=== PATIENT | female | born 1985 | race African-American/Black ===

== ENCOUNTER 2017-01-21 16:32 | Emergency (ER) | payer OTHER ==
[~2017-01-21 16:32] MED LIST: IBUP600 PO
[2017-01-21 17:02] VITALS: BP 112/70; PULSE 92
--- NOTE | 2017-01-21 17:08 | PD ---
HPI Chief Complaint decreased movement Date Seen: Jan 21, 2017 Time Seen: 16:55 (Edilberto Yancey MD R2) Travel History International Travel<30 Days: No Contact w/Intl Traveler<30Days: No Known Affected Area: No (Edilberto Yancey MD) History of Present Illness HPI 31 year old at 38 weeks gestation with EDC of January 31 presents with decreased movements. Onset was this morning. She has noticed about 5 movements per hour (without formal kick counts) while she normally experiences much more. She has no loss of fluid or vaginal bleeding. She has occasional cramping that is not new. She is a patient of [facility]vana Chávez and is up to date on care. complicated by mild gestational diabetes that is diet controlled, nausea throughout . She has no fever, chills, headache, chest pain, shortness of breath, dysuria, increased urinary frequency. (Edilberto Yancey MD R2) History Past Medical History Narrative Medical None (Edilberto Yancey MD) Obstetric History Obstetric History [facility] for OB care GBS negative 1st) 36 weeks vaginal delivery with episiotomy 2nd) induced vaginal delivery at 36 weeks for rupture of membranes, episiotomy with vacuum assistance Current: mild gestational diabetes, diet controlled (Edilberto Yancey MD R2) Past Surgical History Narrative Surgical None (Edilberto Yancey MD) Family History Narrative Family History None (Edilberto Yancey MD) Social History Narrative Social History None (Edilberto Yancey MD R2) Allergies-Medications (Allergen,Severity, Reaction): Coded Allergies: No Known Allergies (Verified , 01/20/15) Home Meds Active Scripts Ibuprofen (Motrin 600 Mg Tab)600 Mg [id number] Mg PO Q6H #30 TAB Ref 1 Prov:Maricarmen Rouse MD 01/22/15 Review of Systems Except as stated in HPI: all other systems reviewed are Neg (Edilberto Yancey MD R2) Physical Exam Narrative GENERAL: Well-nourished, well-developed patient. SKIN: Warm and dry. HEAD: Normocephalic and atraumatic. EYES: No scleral icterus. No injection or drainage. ENT: No nasal drainage noted. Mucous membranes pink. Airway patent. NECK: Supple, trachea midline. No JVD. CARDIOVASCULAR: Regular rate and rhythm without murmurs, gallops, or rubs. RESPIRATORY: Breath sounds equal bilaterally. No accessory muscle use. ABDOMEN/GI: Abdomen soft, non-tender, bowel sounds present, no rebound, no guarding Fundal Height: 38 GENITOURINARY: Uterine Contractions: irregular FHT's: Category: 1 Baseline: 150's Reactive: yes Variability: moderate Decels: none EXTREMITIES: No cyanosis or edema. BACK: Nontender without obvious deformity. No CVA tenderness. NEUROLOGICAL: Awake and alert. (Edilberto Yancey MD R2) Data Data Vital Signs Reviewed: Yes Orders Vital Signs (Adult) .ON ADMISSION (01/21/17 16:51) ^ Labor Status (01/21/17 16:51) ^ Non Stress Test (01/21/17 16:51) Us Ob Bpp Wo Nst (01/21/17 16:51) (Edilberto Yancey MD R2) MDM Medical Record Reviewed: Yes Interpretation(s) 31 year old presents with decreased movements. - External monitoring with non-stress test. - Oral hydration. - BPP - Reassurance, instructions on kick count at home. - Close follow up with OB. (Edilberto Yancey MD R2) Diagnosis Diagnosis: Primary Impression: Decreased movement Additional Impression: 38 weeks gestation of Attestation Patient is a 38-39 weeks gestation with decreased movement. Ultrasound was performed that notes a normal MEKHI of 19.5 and a weight of 3795 g. Biophysical profile is 8 out of 8. monitoring is a category 1. Patient will be discharged with follow-up to her OB provider as scheduled (Vera Ramirez MD) Edilberto Yancey MD R2 Jan 21, 2017 17:08 Vera Ramirez MD Jan 21, 2017 18:36
[2017-01-21 17:09] VITALS: RESP 20; TEMP 98.8
== END 2017-01-21 18:46 | disposition home or self-care (01) ==
LOC: HOBED 16:32
DX: O36.8130 Decreased fetal movements, third trimester, not applicable or unspecified (principal); O24.410 Gestational diabetes mellitus in pregnancy, diet controlled; Z3A.38 38 weeks gestation of pregnancy
CPT/HCPCS: 76816; 76819

== ENCOUNTER 2017-01-22 17:18 | Inpatient (IN) | payer OTHER ==
[2017-01-22] VITALS (8 sets, daily range): BP systolic 114–124; BP diastolic 71–84; PULSE 92–104; RESP 17–18; TEMP 97.5–97.7
[~2017-01-22 17:18] MED LIST changes: +DIPHTH/TETANUS/ACEL PERTUSSIS (BOOSTER) 0.5 ML VIAL/PFS IM ONE; +MEASLES, MUMPS, RUBELLA VACCINE 0.5 ML VIAL SQ ONE
[2017-01-22] MEDS ORDERED: LACTATED RINGER'S 1000 ML INJ 1,000 ML IV PRN (17:37)
[2017-01-22] MEDS ORDERED: LACTATED RINGER'S 1000 ML INJ 1,000 ML IV SCH (17:37)
[2017-01-22] MEDS ORDERED: OXYTOCIN 30 UNITS-500ML PREMIX 500 ML ONE (17:43)
[2017-01-22] MEDS ORDERED: LIDOCAINE HCL 1% 50 ML VIAL I-DERMAL PRN (17:45)
[2017-01-22] MEDS ORDERED: MINERAL OIL 10 ML VIAL TOPICAL PRN (17:45)
[2017-01-22] MEDS ORDERED: SODIUM CHLORID 0.9% 500 ML INJ 500 ML IV PRN (17:45)
[2017-01-22] MEDS ORDERED: CITRIC ACID-SODIUM CITRATE LIQ 30 ML UDC PO SCH (17:45)
[2017-01-22] MEDS ORDERED: LIDOCAINE HCL 1% 50 ML VIAL INFIL PRN (17:45)
[2017-01-22] MEDS ORDERED: OXYTOCIN 30 UNITS-500ML PREMIX 500 ML IV ONE (17:45)
--- NOTE | 2017-01-22 17:45 | HHI.HP ---
History & Physical H&P OB ED Note (Detail) Patient Name: Yasmin Goodman Unit Number: [id number] Date of : 1985 Patient Status: Registered Emergency Room Attending Doctor: Jaxson Aldrich MD HPI HPI Chief Complaint Contractions Date Seen: Jan 22, 2017 Time Seen: 17:40 Travel History International Travel<30 Days: No Contact w/Intl Traveler<30Days: No Known Affected Area: No History of Present Illness HPI 31-year-old 3 para 2 at 40 weeks gestation who reports contractions and ruptured membranes. She has had care with [facility] Ch[facility]vez which has been uncomplicated. Upon arrival in the triage unit she was 6 cm dilated 100% effaced and -1 station. Para: 2 : 3 Miscarriage: 0 : 0 History (Limited) History Past Medical History Medical History: Denies Significant Hx Obstetric History Obstetric History 2 prior vaginal deliveries without complication She reports no complications with this . Past Surgical History Surgical History: No Previous Surgery Family History Family History: Negative Social History Alcohol Use: No Tobacco Use: No Substance Abuse: No Allergies-Medications Allergies-Medications (Allergen,Severity, Reaction): Coded Allergies: No Known Allergies (Verified , 01/20/15) Home Meds Active Scripts Ibuprofen (Motrin 600 Mg Tab)600 Mg [id number] Mg PO Q6H #30 TAB Ref 1 Prov:Maricarmen Rouse MD 01/22/15 ROS Review of Systems Except as stated in HPI: all other systems reviewed are Neg Physical Exam Physical Exam Narrative GENERAL: Well-nourished, well-developed patient. SKIN: Warm and dry. HEAD: Normocephalic and atraumatic. EYES: No scleral icterus. No injection or drainage. ENT: No nasal drainage noted. Mucous membranes pink. Airway patent. NECK: Supple, trachea midline. No JVD. CARDIOVASCULAR: Regular rate and rhythm without murmurs, gallops, or rubs. RESPIRATORY: Breath sounds equal bilaterally. No accessory muscle use. ABDOMEN/GI: Abdomen soft, non-tender, bowel sounds present, no rebound, no guarding Gravid to [-] weeks size Fundal Height: [-] GENITOURINARY: External Genitalia: intact and normal in appearance BUS glands: [Negative-] Cervix: [-] Dilatation: [6-] Effacement: [-100] Station: [-1-] Presentation: [-Vertex] Membranes: ruptured] Uterine Contractions: [Every 3-] FHT's: Category: [-1] Baseline: [-] Reactive: [-] Variability: [-] Decels: [-] EXTREMITIES: No cyanosis or edema. BACK: Nontender without obvious deformity. No CVA tenderness. NEUROLOGICAL: Awake and alert. Motor and sensory grossly within normal limits. Five out of 5 muscle strength in all muscle groups. Normal speech. Data Data Data Vital Signs Reviewed: Yes Orders Ob (2e) Additional Admit Info (01/22/17 17:34) Admit To Inpatient (01/22/17 ) Vital Signs (Adult) .Per protocol (01/22/17 17:37) ^ Heart (01/22/17 17:37) ^ Amnioinfusion (01/22/17 17:37) Urinary Catheter Management .ONCE (01/22/17 17:37) Lactated Ringer's 1000 Ml Inj (Lr 1000 M (01/22/17 17:37) Lactated Ringer's 1000 Ml Inj (Lr 1000 M (01/22/17 17:37) Sodium Chlorid 0.9% 500 Ml Inj (Ns 500 M (01/22/17 17:45) Sodium Chlor 0.9% 1000 Ml Inj (Ns 1000 M (01/22/17 17:57) Lidocaine 1% Inj (50 Ml) (Xylocaine 1% I (01/22/17 17:45) Citric Acid-Sodium Citrate Liq (Bicitra (01/22/17 17:45) Fentanyl Inj (Fentanyl Inj) (01/22/17 17:45) Fentanyl Inj (Fentanyl Inj) (01/22/17 17:45) Complete Blood Count With Diff (01/22/17 17:37) Hold Clot (01/22/17 17:37) Abo/Rh Blood Type (01/22/17 17:37) Urinalysis - C+S If Indicated (01/22/17 17:37) Resp Oxygen Non Rebreathe Mask (01/22/17 ) ^ Epidural / Intrathecal Infus (01/22/17 17:37) Oxytocin 30 Units-500ml Premix (Pitocin (01/22/17 17:45) Lidocaine 1% Inj (50 Ml) (Xylocaine 1% I (01/22/17 17:45) Light Mineral Oil (Muri-Lube Oil) (01/22/17 17:45) Inpatient Certification (01/22/17 ) Specimen To Be Collected PRN (01/22/17 17:37) MDM MDM Medical Record Reviewed: Yes Narrative Course / MDM Assessment: Multipara at 40 weeks gestation in active labor with ruptured membranes. Plan: Admit for labor management. Jaxson Aldrich MD Jan 22, 2017 17:44 Jaxson Aldrich MD Jan 22, 2017 17:45
[2017-01-22] MEDS ORDERED: SODIUM CHLOR 0.9% 1000 ML INJ 1,000 ML IV PRN (17:57)
[2017-01-22 18:32] LABS: AUTOMATED NEUTROPHIL # 4.8 TH/MM3 (1.8-7.7); BASOPHIL # 0.1 TH/MM3 (0-0.2); BASOPHIL % 0.7 % (0.0-2.0); EOSINOPHIL % 0.4 % (0.0-4.0); HEMATOCRIT 32.7 % (35.0-46.0); HEMO FLAGS DIFF FINAL; LYMPH % 26.2 % (9.0-44.0); LYMPHOCYTE # 2.1 TH/MM3 (1.0-4.8); MEAN CELL VOLUME 84.2 FL (80.0-100.0); MEAN CORPUSCULAR HEMOGLOBIN 26.8 PG (27.0-34.0); MEAN CORPUSCULAR HGB CONC 31.8 % (32.0-36.0); MONO % 13.6 % (0.0-8.0); NEUT % 59.1 % (16.0-70.0); PLATELET COUNT 226 TH/MM3 (150-450); RED BLOOD COUNT 3.89 MIL/MM3 (4.00-5.30); RED CELL DISTRIBUTION WIDTH 16.6 % (11.6-17.2); WHITE BLOOD COUNT 8.1 TH/MM3 (4.0-11.0)
[2017-01-22 18:43] LABS: BACTERIA, URINE RARE /hpf; BLOOD, URINE NEG (NEG); COMMENT (UR) CULT NOT INDICATED; CULTURE IF INDICATED CULT NOT INDICATED; GLUCOSE,URINE NEG (NEG); KETONE, URINE NEG (NEG); NITRITE,URINE NEG (NEG); SQUAMOUS EPITHELIAL CELL URINE 5 /hpf (0-5); URINE COLOR LIGHT-YELLOW (YELLW/STRAW)
[2017-01-22 18:56] LABS: BLOOD GAS BASE EXCESS -2.5 mmol/L (-2-2); BLOOD GAS O2 HGB SATURATION 27 % (90-100); CORD BLOOD GAS HCO3 25 mmol/L (21-29); CORD BLOOD GAS PCO2 66 mmHG (34-78); CORD BLOOD GAS PO2 20 mmHG (3.0-40.0); DRAW SITE CORD BLOOD; STAT YES
--- NOTE | 2017-01-22 18:58 | PD.OB.DELI ---
Anesthesia: None Episiotomy: None Vaginal Delivery: Normal Presentation: Occiput anterior Nuchal Cord: None Delayed cord clamping (45 sec): No Shoulder Dystocia: Suprapubic pressure given, Karoline maneuver done, Wood's screw maneuver done : Male One Minute : 4 Five Minute : 8 Weight: 4560, 10lb 1oz Placenta: Spontaneous delivery, Intact, 3 vessel cord Laceration: Vaginal laceration, 2 deg Repair: Vicryl running (shoulder dystocia: The mother pushed effectively to deliver the vertex but the chin immediately retracted against the perineum. Karoline maneuver was immediately employed followed by suprapubic pressure. The posterior aspect of the posterior shoulder was then rotated into an oblique position which was successful in dislodging the anterior shoulder. This then allowed the completion of the delivery. The delay from delivery of the head to the delivery of the was 65 seconds.) Jaxson Aldrich MD Jan 22, 2017 18:58
[2017-01-22] MEDS ORDERED: DOCUSATE SODIUM 50 MG/SENNA 8.6 MG TAB PO PRN (19:15)
[2017-01-22] MEDS ORDERED: ZOLPIDEM TARTRATE 5 MG TAB PO PRN (19:15)
[2017-01-22] MEDS ORDERED: oxyCODONE/ACETAMINOPHEN 5 MG/325 MG TAB PO PRN (19:15)
[2017-01-22] MEDS ORDERED: ACETAMINOPHEN 325 MG TAB PO PRN (19:15)
[2017-01-22] MEDS ORDERED: ONDANSETRON ODT 4 MG TAB PO PRN (19:15)
[2017-01-22] MEDS ORDERED: WITCH HAZEL 50%/GLYCERIN 12.5% 40 PAD JAR TOPICAL PRN (19:15)
[2017-01-22] MEDS ORDERED: SODIUM CHLORIDE 0.9% FLUSH 5 ML FLUSH IV PRN (19:15)
[2017-01-22] MEDS ORDERED: ALUMINUM/MAGNESIUM/SIMETH 30 ML CUP PO PRN (19:15)
[2017-01-22] MEDS ORDERED: BENZOCAINE 20% TOPICAL SPRAY 60 ML CAN TOPICAL PRN (19:15)
[2017-01-22] MEDS ORDERED: SODIUM CHLORIDE 0.9% FLUSH 5 ML FLUSH IV SCH (21:00)
[2017-01-22] MEDS: IBUPROFEN 600 MG TAB PO PRN (23:57)
[2017-01-23] MEDS: IBUPROFEN 600 MG TAB PO PRN ×2 (06:00→20:21)
[2017-01-23 07:40] VITALS: BP 92/56; PULSE 93; RESP 16; TEMP 98.5
--- NOTE | 2017-01-23 10:21 | HHI.OB ---
Subjective Post Day: 1 Remarks Mrs. Goodman is a 31 yo who is PPD 1 from vaginal delivery complicated by shoulder dystocia 01/22/2017. Patient reports significant abdominal pain which is especially worse when standing. Patient reports mild vaginal bleeding. Patient reports normal urination without dysuria. Patient has not yet had bowel movement but is passing gas. Patient is breast-feeding without complication. Patient denies shortness of breath or leg swelling. Patient reports that she plans to follow- up with Dr. Sharma . (Morris Cary MD R2) Remarks Patient seen and evaluated with resident under direct supervision, agree with assessment and plan. (Jaxson Aldrich MD) Objective Vitals/I&O Vital Signs Date Time Temp Pulse Resp B/P Pulse Ox O2 Delivery O2 Flow Rate FiO2 01/23/17 07:40 93 16 92/56 01/23/17 07:40 98.5 01/22/17 20:38 97.5 103 17 124/80 01/22/17 19:36 92 114/74 01/22/17 19:35 18 01/22/17 19:25 18 01/22/17 19:04 97.7 01/22/17 18:58 18 01/22/17 18:58 100 115/84 01/22/17 18:54 104 117/71 01/22/17 17:48 92 18 123/75 Objective Remarks GENERAL: Well-nourished, well-developed patient. CARDIOVASCULAR: Regular rate and rhythm without murmurs RESPIRATORY: Breath sounds equal bilaterally. No accessory muscle use. ABDOMEN/GI: Abdomen soft, non-tender. Fundus: Firm, non-tender at umbilicus. GENITOURINARY: Light to moderate bleeding. EXTREMITIES: No LE edema, non-tender, without signs of DVT. Medications and IVs Current Medications Medications (Trade) Dose Ordered Sig/Shadi Route Start Time Stop Time Status Last Admin Lactated Ringer's 1,000 ml @ 125 mls/hr Q8H IV 01/22/17 17:37 01/22/17 17:51 Lactated Ringer's 1,000 ml @ 3,000 mls/hr Q20M PRN IV 01/22/17 17:37 Sodium Chloride 500 ml @ 1,000 mls/hr ONCE PRN IV 01/22/17 17:45 01/23/17 17:44 (NS 1000 ml Inj) 1,000 ml @ 100 mls/hr Q10H PRN IV 01/22/17 17:57 (fentaNYL INJ) 50 mcg Q1H PRN IV PUSH 01/22/17 17:45 (fentaNYL INJ) 100 mcg Q1H PRN IV PUSH 01/22/17 17:45 01/22/17 19:03 (Muri-Lube Oil) 10 ml UNSCH PRN TOPICAL 01/22/17 17:45 (NS Flush) 2 ml BID IV 01/22/17 21:00 (NS Flush) 2 ml UNSCH PRN IV 01/22/17 19:15 (Tylenol) 650 mg Q4H PRN PO 01/22/17 19:15 (Motrin) 600 mg Q6H PRN PO 01/22/17 19:15 01/23/17 06:00 (Percocet 5-325 Mg) 1 tab Q4H PRN PO 01/22/17 19:15 (Americaine 20% Top Spr) 1 spray Q4H PRN TOPICAL 01/22/17 19:15 01/22/17 22:12 (Tucks Pads) 1 applic QID PRN TOPICAL 01/22/17 19:15 01/22/17 22:11 (Winsome-Colace) 2 tab Q12H PRN PO 01/22/17 19:15 (Ambien) 5 mg HS PRN PO 01/22/17 19:15 (Mag-Al Plus Susp Liq) 15 ml Q8H PRN PO 01/22/17 19:15 (Zofran Odt) 4 mg Q6H PRN PO 01/22/17 19:15 (Morris Cary MD R2) Assessment/Plan Problem List: (1) Vaginal delivery (2) care and examination Assessment and Plan 31 yo female s/p vaginal delivery, PPD1 - AFVSS - Continue routine care - Motrin and Percocet PRN pain - Encourage OOB - Pelvic rest x 6 wks -Continue breast feeding - Anticipate D/C tomorrow (Morris Cary MD R2) Morris Cary MD R2 Jan 23, 2017 10:21 Jaxson Aldrich MD Jan 29, 2017 11:54
[2017-01-24] MEDS ORDERED: SENN1TAB PO (06:56)
[2017-01-24] MEDS ORDERED: IBUP-232 PO (06:56)
--- NOTE | 2017-01-24 06:57 | HHI.DCPOC ---
Discharge Care Plan Diagnosis: (1) Vaginal delivery Goals to Promote Your Health * To prevent worsening of your condition and complications * To maintain your health at the optimal level Directions to Meet Your Goals Take your medications as prescribed Follow your dietary instruction Follow activity as directed Keep your appointments as scheduled Take your immunizations and boosters as scheduled If your symptoms worsen call your PCP, if no PCP go to Urgent Care Center or Emergency Room Smoking is Dangerous to Your Health. Avoid second hand smoke Call the 24-hour hour crisis hotline for domestic abuse at Edilberto Yancey MD R2 Jan 24, 2017 06:57
--- NOTE | 2017-01-24 07:14 | HHI.OB ---
Subjective Post Day: 2 Remarks Mrs. Goodman is a 31 yo who is PPD 2 from vaginal delivery complicated by shoulder dystocia 01/22/2017. Patient reports no pain today. She is getting up and walking around. She has eaten without issues, no BM yet but she feels she will only do this at home. Very ready to go home. ROS negative for fevers, chills. without complication. Patient denies shortness of breath or leg swelling. Patient reports that she plans to follow-up with Dr. Sharma . She is "still thinking" about what type of contraception she wants; does not want Depo- Provera. Objective Vitals/I&O Vital Signs Date Time Temp Pulse Resp B/P Pulse Ox O2 Delivery O2 Flow Rate FiO2 01/23/17 07:40 93 16 92/56 01/23/17 07:40 98.5 Objective Remarks GENERAL: Well-nourished, well-developed female in NAD. . CARDIOVASCULAR: Regular rate and rhythm without murmurs. RESPIRATORY: Breath sounds equal bilaterally. No accessory muscle use. ABDOMEN/GI: Abdomen soft, non-tender. Fundus: Firm, non-tender at umbilicus. GENITOURINARY: Light bleeding. EXTREMITIES: No LE edema, non-tender, without signs of DVT. Medications and IVs Current Medications Medications (Trade) Dose Ordered Sig/Shadi Route Start Time Stop Time Status Last Admin Lactated Ringer's 1,000 ml @ 125 mls/hr Q8H IV 01/22/17 17:37 01/22/17 17:51 Lactated Ringer's 1,000 ml @ 3,000 mls/hr Q20M PRN IV 01/22/17 17:37 (NS 1000 ml Inj) 1,000 ml @ 100 mls/hr Q10H PRN IV 01/22/17 17:57 (fentaNYL INJ) 50 mcg Q1H PRN IV PUSH 01/22/17 17:45 (fentaNYL INJ) 100 mcg Q1H PRN IV PUSH 01/22/17 17:45 01/22/17 19:03 (Muri-Lube Oil) 10 ml UNSCH PRN TOPICAL 01/22/17 17:45 (NS Flush) 2 ml BID IV 01/22/17 21:00 (NS Flush) 2 ml UNSCH PRN IV 01/22/17 19:15 (Tylenol) 650 mg Q4H PRN PO 01/22/17 19:15 (Motrin) 600 mg Q6H PRN PO 01/22/17 19:15 01/23/17 20:21 (Percocet 5-325 Mg) 1 tab Q4H PRN PO 01/22/17 19:15 (Americaine 20% Top Spr) 1 spray Q4H PRN TOPICAL 01/22/17 19:15 01/22/17 22:12 (Tucks Pads) 1 applic QID PRN TOPICAL 01/22/17 19:15 01/22/17 22:11 (Winsome-Colace) 2 tab Q12H PRN PO 01/22/17 19:15 (Ambien) 5 mg HS PRN PO 01/22/17 19:15 (Mag-Al Plus Susp Liq) 15 ml Q8H PRN PO 01/22/17 19:15 (Zofran Odt) 4 mg Q6H PRN PO 01/22/17 19:15 Assessment/Plan Problem List: (1) Vaginal delivery (2) care and examination Assessment and Plan 31 yo female s/p vaginal delivery, PPD #2 - AFVSS - Continue routine care - Motrin PRN pain - Encourage OOB - Pelvic rest x 6 wks -Will f/u with Dr. Sharma -Continue breast feeding -Will discuss contraceptive choice with PCP - Anticipate D/C today [facility] Discharge Planning discharge today Dania Montelongo MD R1 Jan 24, 2017 07:14
== END 2017-01-24 12:36 | disposition home or self-care (01) | DRG 775 ==
LOC: HOBED 17:18 → H2EB 17:36 → H1EA 20:11
PROVIDERS: ADMIT Obstetrics & Gynecology; ATTEND Obstetrics & Gynecology
PROC: 10E0XZZ Delivery of Products of Conception, External Approach (ICD-10-PCS; principal; 2017-01-22)
PROC: 0KQM0ZZ Repair Perineum Muscle, Open Approach (ICD-10-PCS; 2017-01-22)
DX: O66.0 Obstructed labor due to shoulder dystocia (principal); O70.1 Second degree perineal laceration during delivery; Z37.0 Single live birth; Z3A.40 40 weeks gestation of pregnancy
CPT/HCPCS: 76816; 76819; 81001; 82805; 85025; 90715; 99285; J2590; J3010; J7120